=== PATIENT | male | born 1955 | race Caucasian/White ===

== ENCOUNTER → 2021-01-19 | Outpatient (CLI) | payer BC ==
--- NOTE | 2021-01-19 09:01 | RAD ---
EXAM: CT CHEST WITHOUT CONTRAST (LDCT LUNG CANCER SCREENING). HISTORY: Cigarette smoking history. Lung cancer screening. TECHNIQUE: CT of the chest was performed without intravenous contrast using a low-dose lung screening protocol. Findings analysis is based on ACR Lung-RADS v1.1. *One or more of the following individual ized dose reduction techniques were utilized for this examination: 1. Automated exposure control. 2. Adjustment of the mA and/or kV according to patient size. 3. Use of iterative reconstruction technique. COMPARISON: None. FINDINGS: The heart is normal in size. The aorta is normal in caliber. There is calcified atheroscler otic plaque involving the aorta, aortic arch great vessels and coronary arteries. No pathologically e nlarged mediastinal or hilar lymph node is seen. There is a 10 mm slightly spiculated nodule within the lateral right upper lobe (series 8, image 98). There is a 9 mm nodule with spiculated margins within the right lung apex (series 8, image 54). Ther e are adjacent pleural-based nodular opacities with irregular margins at the right lung apex measurin g 1.3 cm and 1.7 cm, likely associated with adjacent pleural proximal scarring. There is a 5 mm groundglass nodular opacity with irregular margins within the right upper lobe (serie s 8, image 91). There is a 6 mm nodule within the medial right lower lobe (series 8, image 248). Ther e is linear scarring or atelectasis within the anterior right upper lobe and there is slight nodular lateral right upper lobe pleural thickening. There is mild emphysema with apical predominant subpleur al blebs. There is no acute or suspicious finding involving the upper abdomen. There are degenerative changes t hroughout the spine. There is no acute or suspicious osseous finding. IMPRESSION: 1. Right-sided pulmonary nodules, the largest of which are at the right lung apex and likely due to e mphysema and apical predominant pleural parenchymal scarring. The most suspicious nodules measure 10 mm and 9 mm mm within the right upper lobe and demonstrate spiculated margins concerning for primary bronchogenic neoplasm. These may be within limits in size for assessment with PET/CT. Lung RADS Categ ory 4. 2. 6 mm medial right lower lobe pulmonary nodule. Attention the time of further imaging is recommende d. 3. Emphysema. Electronically signed by: Holli Benson MD (01/19/2021 8:59 AM) [id number]
== END ==
LOC: CT 08:55
PROVIDERS: ATTEND Family Medicine
DX: Z12.2 Encounter for screening for malignant neoplasm of respiratory organs (principal); R91.8 Other nonspecific abnormal finding of lung field; J43.9 Emphysema, unspecified; F17.200 Nicotine dependence, unspecified, uncomplicated; I70.0 Atherosclerosis of aorta
CPT/HCPCS: 71271

== ENCOUNTER → 2021-04-25 | Outpatient (CLI) | payer BC ==
--- NOTE | 2021-04-25 10:27 | RAD ---
Examination: CT chest without contrast HISTORY: History of nodule COMPARISON: 01/19/2021 TECHNIQUE: Axial CT images of chest were performed without contrast. Coronal and sagittal reformats p erformed Exposure: One or more of the following individualized dose reduction techniques were utilized for thi s examination: 1. Automated exposure control 2. Adjustment of the mA and/or kV according to patient size 3. Use of iterative reconstruction technique FINDINGS: The central airways are patent. The heart size grossly appears unremarkable. Coronary artery calcific ations identified. Mild bilateral lung emphysematous changes. 1 cm spiculated nodule identified in the right apical lung similar to prior exam. 9 mm nodule right apical lung identified. There is nodular opacities identified in the right lung apex measuring 1.3 , 1.7 cm similar to prior exam. Small 5 mm nodule right lower lobe of the lung. Mild bilateral lung emp hysematous changes. Mild degree attenuation noted in the liver likely hepatic steatosis with the lesi on, adrenals grossly appears unremarkable Moderate degenerative changes thoracic spine. IMPRESSION: 1. Multiple nodules identified in the right lung apex similar to prior exam. 2. Mild bilateral lung emphysematous changes. 3. Coronary artery calcifications. Consider further evaluation with PET/CT or non-contrast chest CT at 3-6 months. If the nodules are st able at time of repeat CT, then future CT at 18-24 months (from today's scan) is recommended. Electronically signed by: Don Landa MD (04/25/2021 10:25 AM) [id number]
== END ==
LOC: CT 09:26
PROVIDERS: ATTEND Internal Medicine Pulmonary Disease
DX: R91.8 Other nonspecific abnormal finding of lung field (principal); J43.9 Emphysema, unspecified; I25.10 Atherosclerotic heart disease of native coronary artery without angina pectoris; M47.814 Spondylosis without myelopathy or radiculopathy, thoracic region
CPT/HCPCS: 71250

== ENCOUNTER → 2021-10-15 | Outpatient (CLI) | payer BC ==
--- NOTE | 2021-10-15 12:16 | RAD ---
EXAM: CT CHEST WITHOUT CONTRAST HISTORY: Pulmonary nodule COMPARISON: CT chest 03/26/2021 TECHNIQUE: Helical CT of the chest performed without contrast. Coronal and sagittal reformats were o btained. One or more of the following individualized dose reduction techniques were utilized for this examinat ion: 1. Automated exposure control 2. Adjustment of the mA and/or kV according to patient size 3. Use of iterative reconstruction technique. FINDINGS: Thyroid gland and thoracic inlet: Normal. Heart and great vessels: Heart is normal in size. No pericardial effusion. There are coronary artery calcifications. The thoracic aorta is normal caliber Mediastinum and samantha: There are unchanged small mediastinal lymph nodes, for example an AP window lym ph node measuring 8 mm short axis, nonspecific. No hilar lymphadenopathy. Lungs and pleura: The 10 mm mildly spiculated pulmonary nodule in the right upper lobe now is unchang ed from 01/19/2021 (image 92, series 8). The 9 mm semisolid nodule in the right apex is unchanged (imag e 51, series 8). 1.2 and 1.7 cm irregular nodular opacities at the right apex are unchanged and likel y due to pleural-parenchymal scarring. Unchanged bibasilar nodule in the medial right lower lobe (belle ge 241, series 8) No new pulmonary nodules. Mild airway wall thickening. Mild centrilobular emphysema . No pleural effusion. Chest wall and axillae: No axillary lymphadenopathy. Upper abdomen: The upper abdomen is unremarkable. Bones: No acute osseous abnormality. Mild degenerative disc disease. IMPRESSION: Unchanged pulmonary nodules including 2 suspicious spiculated nodules in the right upper lobe measuring 10 mm and 9 mm. Recommend PET/CT, biopsy, or follow-up CT at 3-6 months. Electronically signed by: Erin Colón MD (10/15/2021 12:14 PM) [id number]
== END ==
LOC: CT 09:12
PROVIDERS: ATTEND Internal Medicine Pulmonary Disease
DX: R91.8 Other nonspecific abnormal finding of lung field (principal); J43.2 Centrilobular emphysema; I25.10 Atherosclerotic heart disease of native coronary artery without angina pectoris; J98.4 Other disorders of lung; M51.34 Other intervertebral disc degeneration, thoracic region
CPT/HCPCS: 71250